=== PATIENT | male | born 1985 | race Two or more races ===

== ENCOUNTER 2018-12-16 07:46 | Outpatient (CLI) | payer OTHER | END 2018-12-16 07:50 | disposition home or self-care (01) | LOC: RAD 07:46 | DX: T14.8XXA Other injury of unspecified body region, initial encounter (principal) ==

== ENCOUNTER → 2019-07-29 | Outpatient (CLI) | payer OTHER | END | disposition home or self-care (01) | LOC: RAD 08:07 | DX: M54.2 Cervicalgia (principal) ==